=== PATIENT | male | born 1960 | race Asian ===

== ENCOUNTER 2017-08-07 04:25 | Inpatient (IN) | payer SELFPAY ==
[2017-08-07] VITALS (19 sets, daily range): BP systolic 80–145; BP diastolic 55–97
[~2017-08-07] VITALS: Ht 165.1 cm; Wt 57.3 kg
[2017-08-07] MEDS ORDERED: QUESTRAN PACKET4 GM GT (04:40)
[2017-08-07] MEDS ORDERED: PREDNISONE20 MG PO (04:41)
[2017-08-07] MEDS ORDERED: MAGNESIUM400 M1 GT (04:42)
[2017-08-07] MEDS ORDERED: PREVACID30 MG GT (04:42)
[2017-08-07] MEDS ORDERED: VISBIOME 112.51 EACH GT (04:44)
[2017-08-07] MEDS ORDERED: NOVOLOG100 UNIT/1 SC (04:46)
[2017-08-07] MEDS ORDERED: ASPIR 8181 M1 GT (04:47)
[2017-08-07] MEDS ORDERED: TYLENOL EXTRA500 MG GT (04:47)
[2017-08-07] MEDS ORDERED: COREG3.125 M1 PO (04:48)
[2017-08-07] MEDS ORDERED: COREG3.125 M1 GT (04:48)
[2017-08-07] MEDS ORDERED: LEXAPRO5 MG/5 ML PO (04:48)
[2017-08-07] MEDS ORDERED: LEXAPRO5 MG/5 ML GT (04:49)
[2017-08-07] MEDS ORDERED: LASIX20 MG GT (04:49)
[2017-08-07] MEDS ORDERED: FEOSOL325 MG GT (04:49)
[2017-08-07] MEDS ORDERED: TIROSINT50 MCG GT (04:50)
[2017-08-07] MEDS ORDERED: LISINOPRIL2.5 MG GT (04:50)
[2017-08-07] MEDS ORDERED: BICARSIM80 MG GT (04:50)
[2017-08-07] MEDS ORDERED: VANCOMYCIN125 MG/2.5 GT (04:51)
[2017-08-07 05:18] LABS: BICARBONATE 40.7 mEq/L (22-26); CARBOXY HGB 3.3 % (0-5); METHEMOGLOBIN 0.8 % (0-1.5); PCO2 51 mm Hg (35-45); PO2 103 mm Hg (80-100); pH 7.51 (7.35-7.45)
[2017-08-07 05:18] LABS: CHLORIDE 94 mEq/L (99-109); POTASSIUM 4.4 mEq/L (3.7-5.4); SODIUM 135 mEq/L (136-147)
[2017-08-07 05:19] LABS: GLUCOSE 142 mg/dL (70-99)
[2017-08-07 05:19] LABS: COMMENTS - BLOOD GASES A+C+; DEVICE VENT; FI02 30 %; MODE SPONT; PEEP 5 CM/H20; PRES. SUPPORT 12 CM/H2O; SITE RR; TOTAL RESP RATE 25 resp/min
[2017-08-07 05:21] LABS: ANION GAP 8 MEQ/L (2-14)
[2017-08-07 05:23] LABS: GFR ESTIMATE (CALCULATED) > 59 mL/min/
[2017-08-07 05:24] LABS: UREA NITROGEN (BUN) 22 mg/dL (9-23)
[2017-08-07 05:31] LABS: TROP-I INTERPRETATION NEGATIVE; TROPONIN-I 0.02 ng/mL (0.0-0.30)
[2017-08-07 06:36] LABS: MCH 29.3 PG (29.0-34.0); MCHC 31.2 G/DL (30.0-36.0); MCV 94.2 FL (86-99); MEAN PLAT.VOLUME 9.9 uM^3 (9.0-12.4); PLATELET COUNT 297 K/uL (156-360); RBC DIS.WIDTH-CV 15.6 % (11.8-14.6); RBC DIS.WIDTH-SD 53.1 % (39-53); RED BLOOD COUNT 2.76 M/uL (4.00-5.50); WHITE BLOOD COUNT 5.2 K/uL (4.1-10.2)
[2017-08-07] MEDS ORDERED: NITROSTAT0.4 MG SL (07:55)
[2017-08-07 09:08] LABS: METH RESISTANT S AUREUS PCR NEGATIVE (NEGATIVE); PROBE CHECK PASS; SPECIMEN PROCESSING CONTROL PASS
[2017-08-07 11:08] LABS: HEMATOCRIT 24.5 % (38.0-50.0); MCH 29.4 PG (29.0-34.0); MCHC 31.4 G/DL (30.0-36.0); MCV 93.5 FL (86-99); MEAN PLAT.VOLUME 9.4 uM^3 (9.0-12.4); PLATELET COUNT 233 K/uL (156-360); RBC DIS.WIDTH-CV 15.9 % (11.8-14.6); RBC DIS.WIDTH-SD 54.6 % (39-53); RED BLOOD COUNT 2.62 M/uL (4.00-5.50); WHITE BLOOD COUNT 8.4 K/uL (4.1-10.2)
[2017-08-07 11:32] LABS: TROP-I INTERPRETATION NEGATIVE; TROPONIN-I 0.03 ng/mL (0.0-0.30)
[2017-08-07 13:34] LABS: POINT-OF-CARE METER ID UU13113748
[2017-08-07 16:14] LABS: HEMATOCRIT 24.8 % (38.0-50.0); MCV 93.2 FL (86-99)
[2017-08-07 16:34] LABS: TROP-I INTERPRETATION NEGATIVE; TROPONIN-I 0.03 ng/mL (0.0-0.30)
[2017-08-07 17:51] LABS: POINT-OF-CARE METER ID UU14314082
[2017-08-07 23:23] LABS: POINT-OF-CARE METER ID UU14314082
[2017-08-08] VITALS (8 sets, daily range): BP systolic 137–156; BP diastolic 85–104
[2017-08-08 07:15] LABS: HEMATOCRIT 33.1 % (38.0-50.0); MCH 29.9 PG (29.0-34.0); MCHC 33.5 G/DL (30.0-36.0); MEAN PLAT.VOLUME 9.8 uM^3 (9.0-12.4); PLATELET COUNT 249 K/uL (156-360); RBC DIS.WIDTH-SD 52.4 % (39-53); WHITE BLOOD COUNT 6.8 K/uL (4.1-10.2)
[2017-08-08 07:23] LABS: MCV 89.2 FL (86-99); RED BLOOD COUNT 3.71 M/uL (4.00-5.50)
[2017-08-08 07:35] LABS: ANION GAP 9 MEQ/L (2-14); CHLORIDE 98 MEQ/L (99-109); GFR ESTIMATE (CALCULATED) > 59 mL/min/; SAMPLE HEMOLYSIS CHECK 0; SAMPLE ICTERIC CHECK 0; SAMPLE LIPEMIA CHECK 0; SODIUM 135 MEQ/L (136-147); UREA NITROGEN (BUN) 18 mg/dL (9-23)
[2017-08-08 07:36] LABS: GLUCOSE 92 mg/dL (70-99); POTASSIUM 3.5 MEQ/L (3.7-5.4)
[2017-08-08 07:45] LABS: POINT-OF-CARE METER ID UU13113803
[2017-08-08 12:45] LABS: POINT-OF-CARE METER ID UU13113748
[2017-08-08 18:56] LABS: POINT-OF-CARE METER ID UU13113748
[2017-08-08 21:37] LABS: POINT-OF-CARE METER ID UU13113803
[2017-08-09] VITALS (10 sets, daily range): BP systolic 95–148; BP diastolic 66–92
[2017-08-09 08:38] LABS: POINT-OF-CARE METER ID UU13113748
[2017-08-09 12:43] LABS: POINT-OF-CARE METER ID UU13113748
[2017-08-09 13:03] LABS: C DIFF TOXIN ND (NEGATIVE)
[2017-08-09 14:13] LABS: C DIFF TOXIN ND (NEGATIVE)
[2017-08-09 16:11] LABS: POINT-OF-CARE METER ID UU13113748
[2017-08-09 23:29] LABS: POINT-OF-CARE METER ID UU13113748; POINT-OF-CARE USER ID PHATLC
[2017-08-10] VITALS (8 sets, daily range): BP systolic 118–150; BP diastolic 75–91
[2017-08-10 10:30] LABS: MCH 30.1 PG (29.0-34.0); MCHC 33.1 G/DL (30.0-36.0); MCV 90.9 FL (86-99); MEAN PLAT.VOLUME 9.8 uM^3 (9.0-12.4); PLATELET COUNT 210 K/uL (156-360); RBC DIS.WIDTH-CV 15.4 % (11.8-14.6); RBC DIS.WIDTH-SD 50.7 % (39-53); RED BLOOD COUNT 3.85 M/uL (4.00-5.50); WHITE BLOOD COUNT 8.6 K/uL (4.1-10.2)
[2017-08-10 10:44] LABS: POINT-OF-CARE METER ID UU14208751
[2017-08-10 10:58] LABS: ANION GAP 7 MEQ/L (2-14); CHLORIDE 99 MEQ/L (99-109); GFR ESTIMATE (CALCULATED) > 59 mL/min/; GLUCOSE 128 mg/dL (70-99); SAMPLE HEMOLYSIS CHECK 0; SAMPLE ICTERIC CHECK 0; SAMPLE LIPEMIA CHECK 0; SODIUM 137 MEQ/L (136-147); UREA NITROGEN (BUN) 18 mg/dL (9-23)
[2017-08-10] MEDS ORDERED: VANCOMYCIN HCL250 MG PO (12:50)
[2017-08-10] MEDS ORDERED: DUONEB 2.5-0.5 M3 ML AEROSOL (12:50)
[2017-08-10 13:40] LABS: POINT-OF-CARE METER ID UU14208751
== END 2017-08-10 15:00 | DRG 208 ==
LOC: EME 04:25 → EDOF 05:50 → CANRESERV 05:51 → ENRESERV 05:51 → 4WEST 07:28
PROVIDERS: Emergency Medicine; Hospitalist; Internal Medicine; Nurse Practitioner Family; Student in an Organized Health Care Education/Training Program
PROC: 30233N1 Transfusion of Nonautologous Red Blood Cells into Peripheral Vein, Percutaneous Approach (ICD-10-PCS; principal; 2017-08-07)
PROC: 5A1945Z Respiratory Ventilation, 24-96 Consecutive Hours (ICD-10-PCS; principal; 2017-08-07)
DX: J69.0 Pneumonitis due to inhalation of food and vomit (principal); A04.72 Enterocolitis due to Clostridium difficile, not specified as recurrent; J44.1 Chronic obstructive pulmonary disease with (acute) exacerbation; J96.11 Chronic respiratory failure with hypoxia; B18.2 Chronic viral hepatitis C; D64.9 Anemia, unspecified; E11.52 Type 2 diabetes mellitus with diabetic peripheral angiopathy with gangrene; E03.9 Hypothyroidism, unspecified; I25.5 Ischemic cardiomyopathy; K21.9 Gastro-esophageal reflux disease without esophagitis; Z74.01 Bed confinement status; Z79.4 Long term (current) use of insulin; Z79.82 Long term (current) use of aspirin; Z85.818 Personal history of malignant neoplasm of other sites of lip, oral cavity, and pharynx; Z93.0 Tracheostomy status; Z99.11 Dependence on respirator [ventilator] status; Z87.891 Personal history of nicotine dependence; I10 Essential (primary) hypertension; Z93.1 Gastrostomy status; I25.2 Old myocardial infarction; R07.89 Other chest pain; I08.1 Rheumatic disorders of both mitral and tricuspid valves; I27.20 Pulmonary hypertension, unspecified
CPT/HCPCS: 36600; 71010; 80048; 82803; 82948; 83605; 83880; 84484; 85014; 85018; 85027; 86850; 86900; 86901; 86920; 87040; 87070; 87077; 87081; 87186; 87205; 87493; 87641; 87801; 93005; 93306; 94002; 94003; 94640; 94640 76; 94667; 94668; 99202; 99281; 99285; J1644; J1815; J2405; J2543; J7050; J7512; P9016; S0030

== ENCOUNTER 2017-09-04 14:26 | Inpatient (IN) | payer SELFPAY ==
[~2017-09-04] VITALS: Ht 170.2 cm; Wt 55.4 kg
[~2017-09-04 14:26] MED LIST: ASPIR 8181 M1 GT; BICARSIM80 MG GT; COREG3.125 M1 GT; COREG3.125 M1 PO; DUONEB 2.5-0.5 M3 ML AEROSOL; FEOSOL325 MG GT; LASIX20 MG GT; LEXAPRO5 MG/5 ML GT; LEXAPRO5 MG/5 ML PO; LISINOPRIL2.5 MG GT; MAGNESIUM400 M1 GT; NITROSTAT0.4 MG SL; NOVOLOG100 UNIT/1 SC; PREDNISONE20 MG PO; PREVACID30 MG GT; QUESTRAN PACKET4 GM GT; TIROSINT50 MCG GT; TYLENOL EXTRA500 MG GT; VANCOMYCIN HCL250 MG PO; VANCOMYCIN125 MG/2.5 GT; VISBIOME 112.51 EACH GT
[2017-09-04 15:16] LABS: BASE EXCESS 5.9 mEq/L (-3 to +3); CARBOXY HGB 1.5 % (0-5); METHEMOGLOBIN 1.2 % (0-1.5)
[2017-09-04 15:17] LABS: BICARBONATE 32.9 mEq/L (22-26); COMMENTS - BLOOD GASES C+; CONTINUOUS POS AIRWAY PRESSURE 5 cm H2O; DEVICE VENTILATOR; MODE SPONTANOUS; PCO2 61 mm Hg (35-45); PO2 291 mm Hg (80-100); PRES. SUPPORT 15 CM/H2O; SITE LB; TOTAL RESP RATE 15 resp/min; pH 7.34 (7.35-7.45)
[2017-09-04 15:19] LABS: INTER. NORMALIZED RATIO 1.1; PROTHROMBIN TIME 12.1 SEC (10.2-12.9)
[2017-09-04 15:20] LABS: CHLORIDE 99 mEq/L (99-109); GLUCOSE 99 mg/dL (70-99); POTASSIUM 4.4 mEq/L (3.7-5.4); SODIUM 135 mEq/L (136-147)
[2017-09-04 15:21] LABS: D-DIMER ELISA < 150.00 ng/mLDDU (<230); PTT 36.6 SEC (25-37)
[2017-09-04 15:22] LABS: ANION GAP 9 MEQ/L (2-14)
[2017-09-04 15:24] LABS: GFR ESTIMATE (CALCULATED) > 59 mL/min/
[2017-09-04 15:25] LABS: UREA NITROGEN (BUN) 20 mg/dL (9-23)
[2017-09-04 15:30] LABS: TROP-I INTERPRETATION NEGATIVE; TROPONIN-I 0.01 ng/mL (0.0-0.30)
[2017-09-04 15:35] LABS: HEMATOCRIT 30.5 % (38.0-50.0); MCH 29.7 PG (29.0-34.0); MCHC 31.8 G/DL (30.0-36.0); MCV 93.3 FL (86-99); RBC DIS.WIDTH-SD 47.8 % (39-53); RED BLOOD COUNT 3.27 M/uL (4.00-5.50); WHITE BLOOD COUNT 6.6 K/uL (4.1-10.2)
[2017-09-04 16:07] LABS: MEAN PLAT.VOLUME 9.2 uM^3 (9.0-12.4); PLAT.SUFFICIENCY DECREASED
[2017-09-04 16:22] LABS: PLATELET COUNT 138 K/uL (156-360)
[2017-09-04] MEDS ORDERED: LEVOTHYROXINE75 MCG GT (18:31)
[2017-09-04] MEDS ORDERED: ANTI-DIARRHEA2 MG GT (18:31)
[2017-09-04] MEDS ORDERED: ACETAMINOPHEN325 M1 GT (18:32)
[2017-09-04] MEDS ORDERED: LEXAPRO10 MG GT (18:33)
[2017-09-04] MEDS ORDERED: CHILD ASPIRIN81 M1 GT (18:33)
[2017-09-04] MEDS ORDERED: PEPCID40 MG/5 ML GT (18:40)
[2017-09-04] MEDS ORDERED: VANCOMYCIN HCL250 MG GT (18:42)
[2017-09-04] MEDS ORDERED: LISINOPRIL2.5 MG GT (18:58)
[2017-09-04] MEDS ORDERED: FEROSUL220 MG/51 GT (18:59)
[2017-09-04] MEDS ORDERED: GAS RELIEF 8080 MG GT (19:02)
[2017-09-04] MEDS ORDERED: QUESTRAN PACKET4 GM GT (19:05)
[2017-09-04] MEDS ORDERED: TRAMADOL HCL50 MG GT (19:07)
[2017-09-04] MEDS ORDERED: NEUTRA-PHOS,1 PACKET GT (19:12)
[2017-09-04] MEDS ORDERED: VSL#3 CAPSULE1 EACH GT (19:15)
[2017-09-04] MEDS ORDERED: NITROSTAT0.4 MG SL (19:16)
[2017-09-04] MEDS ORDERED: NOVOLOG 10100 UNITS/ SC (19:18)
[2017-09-04] MEDS ORDERED: VANCOMYCIN125 MG/2.5 GT (19:33)
[2017-09-04 20:45] VITALS: BP 116/81
[2017-09-04 21:00] VITALS: BP 117/78
[2017-09-04 22:17] LABS: METH RESISTANT S AUREUS PCR NEGATIVE (NEGATIVE)
[2017-09-04 22:20] LABS: PROBE CHECK PASS; SPECIMEN PROCESSING CONTROL PASS
[2017-09-04 22:52] LABS: POINT-OF-CARE METER ID UU14162636
[2017-09-04 23:00] VITALS: BP 135/95
[2017-09-05] VITALS (8 sets, daily range): BP systolic 81–117; BP diastolic 53–85
[2017-09-05 07:49] LABS: HEMATOCRIT 30.9 % (38.0-50.0); MCH 29.2 PG (29.0-34.0); MCV 91.2 FL (86-99); MEAN PLAT.VOLUME 9.1 uM^3 (9.0-12.4); PLATELET COUNT 149 K/uL (156-360); RBC DIS.WIDTH-CV 13.9 % (11.8-14.6); RED BLOOD COUNT 3.39 M/uL (4.00-5.50); WHITE BLOOD COUNT 4.9 K/uL (4.1-10.2)
[2017-09-05 08:10] LABS: ANION GAP 5 MEQ/L (2-14); CHLORIDE 103 MEQ/L (99-109); GFR ESTIMATE (CALCULATED) > 59 mL/min/; GLUCOSE 86 mg/dL (70-99); POTASSIUM 4.1 MEQ/L (3.7-5.4); SAMPLE HEMOLYSIS CHECK 0; SAMPLE ICTERIC CHECK 0; SAMPLE LIPEMIA CHECK 0; SODIUM 136 MEQ/L (136-147); UREA NITROGEN (BUN) 15 mg/dL (9-23)
[2017-09-05 12:23] LABS: POINT-OF-CARE METER ID UU14314083
[2017-09-05 17:22] LABS: TROP-I INTERPRETATION NEGATIVE; TROPONIN-I 0.01 ng/mL (0.0-0.30)
[2017-09-06] VITALS: BP 113/76
[2017-09-06 04:00] VITALS: BP 129/76
[2017-09-06 05:26] LABS: HEMATOCRIT 30.6 % (38.0-50.0); MCH 29.6 PG (29.0-34.0); MCHC 32.4 G/DL (30.0-36.0); MCV 91.6 FL (86-99); MEAN PLAT.VOLUME 9.3 uM^3 (9.0-12.4); PLATELET COUNT 129 K/uL (156-360); RBC DIS.WIDTH-CV 14.2 % (11.8-14.6); RBC DIS.WIDTH-SD 47.7 % (39-53); RED BLOOD COUNT 3.34 M/uL (4.00-5.50); WHITE BLOOD COUNT 5.3 K/uL (4.1-10.2)
[2017-09-06 06:09] LABS: ANION GAP 9 MEQ/L (2-14); CHLORIDE 103 MEQ/L (99-109); GFR ESTIMATE (CALCULATED) > 59 mL/min/; GLUCOSE 55 mg/dL (70-99); POTASSIUM 3.7 MEQ/L (3.7-5.4); SAMPLE HEMOLYSIS CHECK 0; SAMPLE ICTERIC CHECK 0; SAMPLE LIPEMIA CHECK 0; SODIUM 135 MEQ/L (136-147); UREA NITROGEN (BUN) 15 mg/dL (9-23)
[2017-09-06 08:00] VITALS: BP 108/73
[2017-09-06 08:06] LABS: POINT-OF-CARE METER ID UU14174217
[2017-09-06] MEDS ORDERED: CEFEPIME HCL2 GM IM (08:49)
[2017-09-06 12:00] VITALS: BP 109/62
[2017-09-06 13:19] LABS: POINT-OF-CARE METER ID UU14314082
[2017-09-06 15:00] VITALS: BP 124/83
== END 2017-09-06 15:27 | disposition designated cancer center or children's hospital (05) | DRG 208 ==
LOC: EME 14:26 → EDOF 19:03 → 4WEST 19:03 → ENRESERV 19:04 → 4WEST 20:41
PROVIDERS: Emergency Medicine; Hospitalist; Internal Medicine
PROC: 5A1945Z Respiratory Ventilation, 24-96 Consecutive Hours (ICD-10-PCS; principal; 2017-09-04)
DX: J15.1 Pneumonia due to Pseudomonas (principal); J44.0 Chronic obstructive pulmonary disease with (acute) lower respiratory infection; Y95 Nosocomial condition; J96.11 Chronic respiratory failure with hypoxia; A04.72 Enterocolitis due to Clostridium difficile, not specified as recurrent; J44.1 Chronic obstructive pulmonary disease with (acute) exacerbation; Z99.11 Dependence on respirator [ventilator] status; Z99.81 Dependence on supplemental oxygen; Z93.0 Tracheostomy status; R13.10 Dysphagia, unspecified; Z93.1 Gastrostomy status; D64.9 Anemia, unspecified; I11.0 Hypertensive heart disease with heart failure; I50.9 Heart failure, unspecified; E11.52 Type 2 diabetes mellitus with diabetic peripheral angiopathy with gangrene; I42.9 Cardiomyopathy, unspecified; I95.9 Hypotension, unspecified; E11.42 Type 2 diabetes mellitus with diabetic polyneuropathy; L29.9 Pruritus, unspecified; R52 Pain, unspecified; E03.9 Hypothyroidism, unspecified; B18.2 Chronic viral hepatitis C; I70.0 Atherosclerosis of aorta; K21.9 Gastro-esophageal reflux disease without esophagitis; M62.50 Muscle wasting and atrophy, not elsewhere classified, unspecified site; Z68.1 Body mass index [BMI] 19.9 or less, adult; F32.9 Major depressive disorder, single episode, unspecified; I25.2 Old myocardial infarction; Z86.73 Personal history of transient ischemic attack (TIA), and cerebral infarction without residual deficits; Z87.11 Personal history of peptic ulcer disease; Z87.891 Personal history of nicotine dependence; Z74.01 Bed confinement status; Z79.4 Long term (current) use of insulin; Z79.82 Long term (current) use of aspirin; Z85.818 Personal history of malignant neoplasm of other sites of lip, oral cavity, and pharynx
CPT/HCPCS: 36600; 71010; 71275; 80048; 82803; 82948; 83605; 84484; 85027; 85379; 85610; 85730; 87040; 87070; 87077; 87081; 87186; 87205; 87641; 93005; 94002; 94003; 94640; 94640 76; 99281; 99285; J0456; J0692; J1644; J1815; J2543; J3370; J7030; J7050; J7512

== ENCOUNTER 2017-10-13 13:13 | Emergency (ER) | payer SELFPAY ==
[~2017-10-13] VITALS: Ht 165.1 cm; Wt 55.0 kg
[~2017-10-13 13:13] MED LIST changes: +ACETAMINOPHEN325 M1 GT; +ANTI-DIARRHEA2 MG GT; +CEFEPIME HCL2 GM IM; +CHILD ASPIRIN81 M1 GT; +FEROSUL220 MG/51 GT; +GAS RELIEF 8080 MG GT; +LEVOTHYROXINE75 MCG GT; +NEUTRA-PHOS,1 PACKET GT; +NOVOLOG 10100 UNITS/ SC; +PEPCID40 MG/5 ML GT; +TRAMADOL HCL50 MG GT; +VANCOMYCIN HCL250 MG GT; +VSL#3 CAPSULE1 EACH GT
[2017-10-13 14:48] LABS: HEMATOCRIT 34.5 % (38.0-50.0); HEMOGLOBIN 11.7 G/DL (12.5-16.6); MCHC 33.9 G/DL (30.0-36.0); MCV 91.3 FL (86-99); PLATELET COUNT 169 K/uL (156-360); RBC DIS.WIDTH-CV 13.9 % (11.8-14.6); RBC DIS.WIDTH-SD 47.1 % (39-53); RED BLOOD COUNT 3.78 M/uL (4.00-5.50); WHITE BLOOD COUNT 12.5 K/uL (4.1-10.2)
[2017-10-13 14:54] LABS: ALBUMIN 3.8 g/dL (3.2-4.8)
[2017-10-13 14:55] LABS: CHLORIDE 99 mEq/L (99-109); POTASSIUM 3.8 mEq/L (3.7-5.4); SODIUM 135 mEq/L (136-147)
[2017-10-13 14:57] LABS: GLUCOSE 133 mg/dL (70-99); TOTAL PROTEIN 8.1 g/dL (6.4-8.3)
[2017-10-13 14:59] LABS: TOTAL BILIRUBIN 0.4 mg/dL (0.0-1.0)
[2017-10-13 15:00] LABS: ALKALINE PHOSPHATASE 69 IU/L (3-129)
[2017-10-13 15:01] LABS: CREATININE 0.6 mg/dL (0.6-1.3); GFR ESTIMATE (CALCULATED) > 59 mL/min/ (58.99-99999)
[2017-10-13 15:02] LABS: AST (GOT) 48 IU/L (2-34); UREA NITROGEN (BUN) 24 mg/dL (9-23)
[2017-10-13 15:04] LABS: ALT (GPT) 56 IU/L (3-49); LIPASE 13 U/L (1.0-51.0)
[2017-10-13] MEDS ORDERED: ZOFRAN ODT4 MG PO (18:35)
[2017-10-13 21:51] VITALS: BP 93/65
[2017-10-14] MEDS ORDERED: VSL#3 CAPSULE1 EACH GT (19:56)
[2017-10-14] MEDS ORDERED: ZOFRAN4 MG GT (19:57)
[2017-10-14] MEDS ORDERED: PROTONIX40 M1 GT ×2 (20:01)
[2017-10-14] MEDS ORDERED: AUGMENTIN875 MG GT (20:02)
[2017-10-14] MEDS ORDERED: ZOSYN 3.3753.375 GM IV (20:05)
[2017-10-14] MEDS ORDERED: MIDODRINE HCL5 MG GT (20:05)
[2017-10-14] MEDS ORDERED: TAMIFLU75 MG GT (20:05)
[2017-10-14] MEDS ORDERED: BANATROL PLUS1 EACH GT (20:06)
[2017-10-14] MEDS ORDERED: MAGNESIUM GLU27.5 MG GT ×2 (20:07)
[2017-10-14] MEDS ORDERED: DULCOLAX10 MG PR (20:08)
== END 2017-10-13 21:52 ==
LOC: EME 13:13
PROVIDERS: Nurse Practitioner Family
DX: K80.20 Calculus of gallbladder without cholecystitis without obstruction (principal); D72.829 Elevated white blood cell count, unspecified; R50.9 Fever, unspecified; R09.02 Hypoxemia; R11.2 Nausea with vomiting, unspecified; R19.7 Diarrhea, unspecified; R06.02 Shortness of breath; R59.0 Localized enlarged lymph nodes; R00.0 Tachycardia, unspecified; Z93.0 Tracheostomy status; Z93.1 Gastrostomy status; J44.9 Chronic obstructive pulmonary disease, unspecified; I10 Essential (primary) hypertension; E11.52 Type 2 diabetes mellitus with diabetic peripheral angiopathy with gangrene; I96 Gangrene, not elsewhere classified; Z79.4 Long term (current) use of insulin; Z86.73 Personal history of transient ischemic attack (TIA), and cerebral infarction without residual deficits; Z79.82 Long term (current) use of aspirin; Z87.891 Personal history of nicotine dependence
CPT/HCPCS: 31720; 71045; 71275; 74177; 80053; 83605; 83690; 85027; 87040; 93005; 94644; 94799; 99281; 99285; J2405; J3010; J7030

== ENCOUNTER 2017-10-14 12:48 | Inpatient (IN) | payer OTHER ==
[~2017-10-14] VITALS: Ht 170.2 cm; Wt 54.7 kg
[~2017-10-14 12:48] MED LIST changes: +ZOFRAN ODT4 MG PO
[2017-10-14 15:40] LABS: HEMATOCRIT 33.6 % (38.0-50.0); HEMOGLOBIN 11.2 G/DL (12.5-16.6); MCH 30.9 PG (29.0-34.0); MCHC 33.3 G/DL (30.0-36.0); MCV 92.6 FL (86-99); PLATELET COUNT 183 K/uL (156-360); RBC DIS.WIDTH-CV 14.2 % (11.8-14.6); RBC DIS.WIDTH-SD 48.1 % (39-53); RED BLOOD COUNT 3.63 M/uL (4.00-5.50); WHITE BLOOD COUNT 8.8 K/uL (4.1-10.2)
[2017-10-14 15:46] LABS: INTER. NORMALIZED RATIO 1.2
[2017-10-14 15:49] LABS: PTT 38.3 SEC (25-37)
[2017-10-14 16:01] LABS: TROP-I INTERPRETATION NEGATIVE; TROPONIN-I 0.07 ng/mL (0.0-0.30)
[2017-10-14 16:14] LABS: ALBUMIN 3.6 g/dL (3.2-4.8); POTASSIUM 4.1 mEq/L (3.7-5.4)
[2017-10-14 16:16] LABS: GLUCOSE 122 mg/dL (70-99); TOTAL PROTEIN 7.3 g/dL (6.4-8.3)
[2017-10-14 16:18] LABS: TOTAL BILIRUBIN 0.4 mg/dL (0.0-1.0)
[2017-10-14 16:20] LABS: ALKALINE PHOSPHATASE 62 IU/L (3-129); CREATININE 0.6 mg/dL (0.6-1.3); GFR ESTIMATE (CALCULATED) > 59 mL/min/ (58.99-99999)
[2017-10-14 16:21] LABS: UREA NITROGEN (BUN) 23 mg/dL (9-23)
[2017-10-14 16:23] LABS: ALT (GPT) 77 IU/L (3-49); LIPASE 3 U/L (1.0-51.0)
[2017-10-14 16:24] LABS: AST (GOT) 81 IU/L (2-34); CHLORIDE 111 mEq/L (99-109); SODIUM 142 mEq/L (136-147)
[2017-10-14 17:39] LABS: GASTRIC OCCULT BLD. POSITIVE
[2017-10-14] MEDS ORDERED: VSL#3 CAPSULE1 EACH GT (19:56)
[2017-10-14] MEDS ORDERED: ZOFRAN4 MG GT (19:57)
[2017-10-14] MEDS ORDERED: PROTONIX40 M1 GT ×2 (20:01)
[2017-10-14] MEDS ORDERED: AUGMENTIN875 MG GT (20:02)
[2017-10-14] MEDS ORDERED: ZOSYN 3.3753.375 GM IV (20:05)
[2017-10-14] MEDS ORDERED: MIDODRINE HCL5 MG GT (20:05)
[2017-10-14] MEDS ORDERED: TAMIFLU75 MG GT (20:05)
[2017-10-14] MEDS ORDERED: BANATROL PLUS1 EACH GT (20:06)
[2017-10-14] MEDS ORDERED: MAGNESIUM GLU27.5 MG GT ×2 (20:07)
[2017-10-14] MEDS ORDERED: DULCOLAX10 MG PR (20:08)
[2017-10-14 22:50] LABS: BICARBONATE 28.6 mEq/L (22-26); CARBOXY HGB 2.1 % (0-5); METHEMOGLOBIN 1.1 % (0-1.5)
[2017-10-14 22:51] LABS: COMMENTS - BLOOD GASES A+C+; DEVICE TPIECE; FI02 70 %; PCO2 86 mm Hg (35-45); PO2 56 mm Hg (80-100); SITE RR; pH 7.13 (7.35-7.45)
[2017-10-15] VITALS (26 sets, daily range): BP systolic 103–163; BP diastolic 76–110
[2017-10-15 02:25] LABS: BASE EXCESS -0.1 mEq/L (-3 to +3); BICARBONATE 27.3 mEq/L (22-26); CARBOXY HGB 1.9 % (0-5); COMMENTS - BLOOD GASES A+C+; DEVICE VENT; FI02 60 %; MECHANICAL RATE 14 resp/min; METHEMOGLOBIN 1.5 % (0-1.5); MODE A/C; PCO2 58 mm Hg (35-45); PEEP 5 CM/H20; PO2 71 mm Hg (80-100); SITE LR; TIDAL VOLUME 450 ML; TOTAL RESP RATE 18 resp/min; pH 7.28 (7.35-7.45)
[2017-10-15 02:41] LABS: C DIFF TOXIN NEGATIVE (NEGATIVE)
[2017-10-15 05:16] LABS: CHLORIDE 113 mEq/L (99-109); POTASSIUM 4.1 mEq/L (3.7-5.4); SODIUM 143 mEq/L (136-147)
[2017-10-15 05:17] LABS: GLUCOSE 97 mg/dL (70-99)
[2017-10-15 05:21] LABS: CREATININE 0.6 mg/dL (0.6-1.3); GFR ESTIMATE (CALCULATED) > 59 mL/min/ (58.99-99999)
[2017-10-15 05:22] LABS: UREA NITROGEN (BUN) 18 mg/dL (9-23)
[2017-10-15 05:49] LABS: APPEARANCE CLEAR ((CLEAR)); BILIRUBIN NEGATIVE; BLOOD NEGATIVE; COLOR STRAW ((YELLOW)); GLUCOSE (STRIP) NEGATIVE; KETONES 5; LEUKOCYTES NEGATIVE; NITRITE NEGATIVE; PROTEIN (STRIP) NEGATIVE; SPECIFIC GRAVITY 1.008 (1.000-1.030); UROBILINOGEN 0.2 MG/DL (0.2-1.0)
[2017-10-15 06:29] LABS: HEMATOCRIT 32.7 % (38.0-50.0); HEMOGLOBIN 10.8 G/DL (12.5-16.6); MCH 31.2 PG (29.0-34.0); MCV 94.5 FL (86-99); RBC DIS.WIDTH-CV 14.2 % (11.8-14.6); RBC DIS.WIDTH-SD 48.8 % (39-53); RED BLOOD COUNT 3.46 M/uL (4.00-5.50); WHITE BLOOD COUNT 4.9 K/uL (4.1-10.2)
[2017-10-15 07:07] LABS: PLAT.SUFFICIENCY DECREASED
[2017-10-15 07:08] LABS: PLATELET COUNT 105 K/uL (156-360)
[2017-10-15 07:13] LABS: HEMOGLOBIN A1c (GLYCOHEMOGLOB) 5.3 % HGB (Below 5.7)
[2017-10-16] VITALS (24 sets, daily range): BP systolic 0–168; BP diastolic 0–112
[2017-10-16 05:45] LABS: HEMATOCRIT 32.8 % (38.0-50.0); HEMOGLOBIN 10.8 G/DL (12.5-16.6); MCH 30.6 PG (29.0-34.0); MCHC 32.9 G/DL (30.0-36.0); MCV 92.9 FL (86-99); RBC DIS.WIDTH-CV 13.8 % (11.8-14.6); RBC DIS.WIDTH-SD 46.6 % (39-53); RED BLOOD COUNT 3.53 M/uL (4.00-5.50); WHITE BLOOD COUNT 8.9 K/uL (4.1-10.2)
[2017-10-16 05:47] LABS: PLATELET COUNT 147 K/uL (156-360)
[2017-10-16 06:05] LABS: CHLORIDE 112 MEQ/L (99-109); CREATININE 0.5 MG/DL (0.6-1.3); GFR ESTIMATE (CALCULATED) > 59 mL/min/ (58.99-99999); GLUCOSE 227 mg/dL (70-99); MAGNESIUM 1.6 mg/dl (1.3-2.7); PHOSPHORUS < 1.0 mg/dL (2.5-4.9); POTASSIUM 2.7 MEQ/L (3.7-5.4); SODIUM 152 MEQ/L (136-147); UREA NITROGEN (BUN) 22 mg/dL (9-23)
[2017-10-16 06:18] LABS: ABS NEUTROPHIL COUNT 8.5; ANISOCYTOSIS 1+; ATYPICAL LYMPHOCYTE 1.7 %; BAND NEUTROPHILS 21.8 % (0-8.0); EOSINOPHIL ABS CT 0; LYMPHOCYTES 1.7 % (15.0-45.0); MONOCYTES 0.9 % (0-9.0); PLAT.SUFFICIENCY DECREASED; SEG.NEUTROPHILS 73.9 % (46.0-76.0)
[2017-10-16 21:11] LABS: CHLORIDE 117 mEq/L (99-109); SODIUM 155 mEq/L (136-147)
[2017-10-16 21:12] LABS: MAGNESIUM 1.6 mg/dL (1.3-2.7); POTASSIUM 3.3 mEq/L (3.7-5.4)
[2017-10-16 21:13] LABS: GLUCOSE 152 mg/dL (70-99)
[2017-10-16 21:16] LABS: PHOSPHORUS 2.7 mg/dL (2.5-4.9)
[2017-10-16 21:17] LABS: CREATININE 0.5 mg/dL (0.6-1.3); GFR ESTIMATE (CALCULATED) > 59 mL/min/ (58.99-99999)
[2017-10-16 21:18] LABS: UREA NITROGEN (BUN) 19 mg/dL (9-23)
[2017-10-17] VITALS (15 sets, daily range): BP systolic 108–169; BP diastolic 72–116
[2017-10-17 06:22] LABS: BASOPHIL (%) 0.2 % (0-1); EOSINOPHIL COUNT 0.2 K/uL (0-0.3); HEMOGLOBIN 10.5 G/DL (12.5-16.6); IMMATURE GRANULOCYTE (%) 1.5 % (0.0-0.7); LYMPHOCYTE (%) 7.6 % (15-42); LYMPHOCYTE COUNT 0.7 K/uL (1.0-2.8); MCH 30.6 PG (29.0-34.0); MCHC 32.8 G/DL (30.0-36.0); MCV 93.3 FL (86-99); MONOCYTE (%) 1.7 % (3-12); MONOCYTE COUNT 0.2 K/uL (0-0.8); NEUTROPHIL COUNT 8.5 K/uL (1.8-6.4); PLATELET COUNT 139 K/uL (156-360); RED BLOOD COUNT 3.43 M/uL (4.00-5.50); WHITE BLOOD COUNT 9.8 K/uL (4.1-10.2)
[2017-10-17 09:59] LABS: CHLORIDE 119 MEQ/L (99-109); CREATININE 0.3 MG/DL (0.6-1.3); GFR ESTIMATE (CALCULATED) > 59 mL/min/ (58.99-99999); GLUCOSE 193 mg/dL (70-99); MAGNESIUM 1.6 mg/dl (1.3-2.7); POTASSIUM 3.2 MEQ/L (3.7-5.4); SODIUM 159 MEQ/L (136-147); UREA NITROGEN (BUN) 18 mg/dL (9-23)
[2017-10-17 10:05] LABS: PHOSPHORUS 1.5 mg/dL (2.5-4.9)
[2017-10-18] VITALS (20 sets, daily range): BP systolic 100–170; BP diastolic 66–120
[2017-10-19] VITALS (22 sets, daily range): BP systolic 100–171; BP diastolic 67–114
[2017-10-19 06:03] LABS: BASE EXCESS 17.2 mEq/L (-3 to +3); CARBOXY HGB 2.3 % (0-5); METHEMOGLOBIN 1.6 % (0-1.5); PO2 69 mm Hg (80-100); pH 7.37 (7.35-7.45)
[2017-10-19 06:04] LABS: BICARBONATE 45.7 mEq/L (22-26); COMMENTS - BLOOD GASES C+; DEVICE TP; FI02 50 %; O2 FLOW 10 L/MIN; PCO2 79 mm Hg (35-45); SITE LR; TOTAL RESP RATE 17 resp/min
[2017-10-19 09:53] LABS: BASOPHIL (%) 0.5 % (0-1); EOSINOPHIL (%) 6.8 % (0-5); EOSINOPHIL COUNT 0.5 K/uL (0-0.3); HEMATOCRIT 34.7 % (38.0-50.0); HEMOGLOBIN 10.9 G/DL (12.5-16.6); IMMATURE GRANULOCYTE (%) 3.3 % (0.0-0.7); LYMPHOCYTE (%) 14.8 % (15-42); LYMPHOCYTE COUNT 1.1 K/uL (1.0-2.8); MCH 29.6 PG (29.0-34.0); MCHC 31.4 G/DL (30.0-36.0); MCV 94.3 FL (86-99); MONOCYTE (%) 3.1 % (3-12); MONOCYTE COUNT 0.2 K/uL (0-0.8); NEUTROPHIL (%) 71.5 % (45-76); NEUTROPHIL COUNT 5.5 K/uL (1.8-6.4); NRBC (%) 0.3 /100 WBC (0-0); PLATELET COUNT 140 K/uL (156-360); RBC DIS.WIDTH-CV 13.8 % (11.8-14.6); RED BLOOD COUNT 3.68 M/uL (4.00-5.50); WHITE BLOOD COUNT 7.7 K/uL (4.1-10.2)
[2017-10-19 10:17] LABS: ALBUMIN 2.7 G/DL (3.2-4.8); ALKALINE PHOSPHATASE 74 IU/L (3-129); ALT (GPT) 41 IU/L (3-49); AST (GOT) 36 IU/L (2-34); CREATININE 0.3 MG/DL (0.6-1.3); GFR ESTIMATE (CALCULATED) > 59 mL/min/ (58.99-99999); GLUCOSE 152 mg/dL (70-99); MAGNESIUM 1.7 mg/dl (1.3-2.7); POTASSIUM 3.1 MEQ/L (3.7-5.4); TOTAL BILIRUBIN 0.2 MG/DL (0.0-1.0); TOTAL PROTEIN 6.2 G/DL (6.4-8.3); UREA NITROGEN (BUN) 15 mg/dL (9-23)
[2017-10-19 10:30] LABS: CHLORIDE 104 MEQ/L (99-109); PHOSPHORUS 3.2 mg/dL (2.5-4.9); SODIUM 149 MEQ/L (136-147)
[2017-10-20] VITALS (13 sets, daily range): BP systolic 109–167; BP diastolic 68–103
[2017-10-20 07:08] LABS: HEMATOCRIT 33.4 % (38.0-50.0); HEMOGLOBIN 10.5 G/DL (12.5-16.6); MCH 30.1 PG (29.0-34.0); MCHC 31.4 G/DL (30.0-36.0); MCV 95.7 FL (86-99); NRBC (%) 0.3 /100 WBC (0-0); PLATELET COUNT 138 K/uL (156-360); RBC DIS.WIDTH-CV 13.7 % (11.8-14.6); RED BLOOD COUNT 3.49 M/uL (4.00-5.50); WHITE BLOOD COUNT 6.2 K/uL (4.1-10.2)
[2017-10-20 07:31] LABS: ALBUMIN 2.6 G/DL (3.2-4.8); ALKALINE PHOSPHATASE 69 IU/L (3-129); ALT (GPT) 32 IU/L (3-49); AST (GOT) 29 IU/L (2-34); CHLORIDE 101 MEQ/L (99-109); CREATININE 0.3 MG/DL (0.6-1.3); GFR ESTIMATE (CALCULATED) > 59 mL/min/ (58.99-99999); GLUCOSE 140 mg/dL (70-99); MAGNESIUM 1.7 mg/dl (1.3-2.7); PHOSPHORUS 2.8 mg/dL (2.5-4.9); POTASSIUM 3.4 MEQ/L (3.7-5.4); SODIUM 147 MEQ/L (136-147); TOTAL BILIRUBIN 0.3 MG/DL (0.0-1.0); TOTAL PROTEIN 5.8 G/DL (6.4-8.3); UREA NITROGEN (BUN) 13 mg/dL (9-23)
[2017-10-20 07:53] LABS: ATYPICAL LYMPHOCYTE 0.9 %; BASOPHILS 0.9 %; EOSINOPHIL ABS CT 0.4; EOSINOPHILS 6.4 % (0-5.0); LYMPHOCYTES 10.9 % (15.0-45.0); MONOCYTES 0.9 % (0-9.0); PLAT.SUFFICIENCY DECREASED; SMUDGE CELLS 7.3
[2017-10-20] MEDS ORDERED: DUONEB 2.5-0.5 M3 ML AEROSOL (10:06)
[2017-10-20] MEDS ORDERED: HEPARIN SO5000 UNIT4 SC (10:06)
[2017-10-20] MEDS ORDERED: BUDESONIDE0.5 MG/2 M AEROSOL (10:08)
[2017-10-20] MEDS ORDERED: POTASSIUM20 MEQ/11 GT (10:08)
[2017-10-20] MEDS ORDERED: NATURAL BALANCE15 M1 BOTH EYES (10:09)
[2017-10-20] MEDS ORDERED: NOVOLOG 10100 UNITS/ SC (10:11)
[2017-10-20 11:42] LABS: THYROTROPIN (TSH) 6.3 MIU/L (0.4-5.5)
== END 2017-10-20 12:45 | DRG 207 ==
LOC: EME 12:48 → 4WEST 22:49 → EDOF 22:49 → ENRESERV 22:51 → 4WEST 10-15 00:04
PROVIDERS: Emergency Medicine; Hospitalist; Internal Medicine; Specialist; Surgery
PROC: 5A1955Z Respiratory Ventilation, Greater than 96 Consecutive Hours (ICD-10-PCS; principal; 2017-10-14)
DX: J96.21 Acute and chronic respiratory failure with hypoxia (principal); J69.0 Pneumonitis due to inhalation of food and vomit; K92.0 Hematemesis; R00.0 Tachycardia, unspecified; E86.1 Hypovolemia; E83.39 Other disorders of phosphorus metabolism; E11.42 Type 2 diabetes mellitus with diabetic polyneuropathy; R04.2 Hemoptysis; E87.0 Hyperosmolality and hypernatremia; E87.2 Acidosis; Z93.1 Gastrostomy status; E87.70 Fluid overload, unspecified; E11.52 Type 2 diabetes mellitus with diabetic peripheral angiopathy with gangrene; E83.42 Hypomagnesemia; B18.2 Chronic viral hepatitis C; E87.6 Hypokalemia; I10 Essential (primary) hypertension; F32.9 Major depressive disorder, single episode, unspecified; E03.9 Hypothyroidism, unspecified; B19.20 Unspecified viral hepatitis C without hepatic coma; D64.9 Anemia, unspecified; I25.5 Ischemic cardiomyopathy; G83.21 Monoplegia of upper limb affecting right dominant side; R10.11 Right upper quadrant pain; K21.9 Gastro-esophageal reflux disease without esophagitis; I25.10 Atherosclerotic heart disease of native coronary artery without angina pectoris; J44.9 Chronic obstructive pulmonary disease, unspecified; I73.9 Peripheral vascular disease, unspecified; Z87.891 Personal history of nicotine dependence; Z87.11 Personal history of peptic ulcer disease; Z85.21 Personal history of malignant neoplasm of larynx; Z92.3 Personal history of irradiation; I25.2 Old myocardial infarction; Z93.0 Tracheostomy status; Z68.1 Body mass index [BMI] 19.9 or less, adult; K90.49 Malabsorption due to intolerance, not elsewhere classified; Z86.19 Personal history of other infectious and parasitic diseases; B96.1 Klebsiella pneumoniae [K. pneumoniae] as the cause of diseases classified elsewhere; Z81.8 Family history of other mental and behavioral disorders
CPT/HCPCS: 31720; 36600; 71045; 71275; 74177; 76705; 80048; 80048 91; 80053; 80202; 81003; 82140; 82271; 82330; 82803; 82948; 83036; 83605; 83690; 83735; 83880; 84100; 84439; 84443; 84484; 85025; 85027; 85610; 85730; 86147 90; 86850; 86900; 86901; 87040; 87070; 87077; 87081; 87186; 87205; 87493; 87641; 93005; 94002; 94003; 94640; 94640 76; 94644; 94799; 99202; 99281; 99284; 99285; C9113; J0696; J1644; J1815; J1940; J2405; J2543; J3010; J3260; J3370; J3475; J3480; J7030; J7050; J7070; S0028

== ENCOUNTER → 2017-10-31 | Outpatient (CLI) | payer OTHER ==
[~2017-10-31] MED LIST changes: +AUGMENTIN875 MG GT; +BANATROL PLUS1 EACH GT; +BUDESONIDE0.5 MG/2 M AEROSOL; +DULCOLAX10 MG PR; +HEPARIN SO5000 UNIT4 SC; +MAGNESIUM GLU27.5 MG GT; +MIDODRINE HCL5 MG GT; +NATURAL BALANCE15 M1 BOTH EYES; +POTASSIUM20 MEQ/11 GT; +PROTONIX40 M1 GT; +TAMIFLU75 MG GT; +ZOFRAN4 MG GT; +ZOSYN 3.3753.375 GM IV
== END | disposition designated cancer center or children's hospital (05) ==
LOC: RAD 13:00
DX: J84.10 Pulmonary fibrosis, unspecified (principal); J98.11 Atelectasis; R91.8 Other nonspecific abnormal finding of lung field; J18.9 Pneumonia, unspecified organism
CPT/HCPCS: 71260